=== PATIENT | male | born 1995 | race Hispanic/Latino ===

== ENCOUNTER 2018-05-26 21:13 | Emergency (ER) | payer OTHER ==
[2018-05-26] MEDS ORDERED: IBUPROFEN 200 MG TAB PO ONE (21:53)
[2018-05-26] MEDS ORDERED: NA CHLORIDE 0.9% 1,000 ML ONE (22:18)
[2018-05-26 22:52] LABS: Absolute Lymphocytes (CBC) 1.1 K/uL (0.7-4.9); Absolute Monocytes 0.6 K/uL (0.1-1.3); Absolute Neutrophil 8.1 K/uL (1.8-8.0); Basophils % 0.2 % (0-1.3); Eosinophils % 0.1 % (0-4.4); Hematocrit 47.1 % (39.6-49.0); Lymphocytes % 11.1 % (15.3-44.8); MPV 9.5 fL (7.6-11.3); Monocytes % 6.3 % (3.3-12.3); RBC Red Blood Cell Count 5.33 M/uL (4.33-5.43)
[2018-05-26] MEDS ORDERED: KETOROLAC 30 MG/ML INJ ONE (22:57)
[2018-05-26 23:00] LABS: BUN Blood Urea Nitrogen 10 mg/dL (7-18); Bicarbonate 24 mmol/L (21-32); Glucose Level 115 mg/dL (74-106); Potassium 3.2 mmol/L (3.5-5.1); Sodium Level 138 mmol/L (136-145)
[2018-05-27] MEDS ORDERED: FENTANYL CITR 100 MCG/2 ML ONE (01:58)
--- NOTE | 2018-05-27 02:42 | ER ---
Nurse's Notes [facility] Name: Stephan Domingo Age: 23 yrs Sex: Male : 1995 Arrival Date: 05/26/2018 Time: 21:23 Bed 18 Private MD: Imelda Vogt H Diagnosis: Lower abdominal pain, unspecified;Fever presenting with conditions classified elsewhere Presentation: 05/26 21:34 Presenting complaint: Patient states: he started having severe abdominal cramping since bb appox 0300 this morning vomited x 2 and has fever up to 104/105 pt took tylenol approx 30 mins ago 500 mg. Transition of care: patient was not received from another setting of care. Onset of symptoms was May 26, 2018. Risk Assessment: Do you want to hurt yourself or someone else? Patient reports no desire to harm self or others. Initial Sepsis Screen: Does the patient meet any 2 criteria? No. Patient's initial sepsis screen is negative. Does the patient have a suspected source of infection? No. Patient's initial sepsis screen is negative. Care prior to arrival: None. 21:34 Method Of Arrival: Ambulatory bb 21:34 Acuity: YEFRI 3 bb Historical: - Allergies: 21:35 No Known Allergies; bb - Home Meds: 21:35 None [Active]; bb - PMHx: 21:35 None; bb - PSHx: 21:35 None; bb - Immunization history:: Adult Immunizations up to date, Flu vaccine is not up to date. - Social history:: Smoking status: Patient/guardian denies using tobacco, Patient uses alcohol, only on a social basis. Patient/guardian denies using street drugs. - Ebola Screening: : No symptoms or risks identified at this time. Screenin:20 Abuse screen: Denies threats or abuse. Nutritional screening: No deficits noted. jb4 Tuberculosis screening: No symptoms or risk factors identified. Fall Risk None identified. Assessment: 21:50 General: Appears in no apparent distress. uncomfortable, Behavior is calm, cooperative, jb4 appropriate for age. Pain: Complains of pain in abdomen Pain radiates to back Pain currently is 7 out of 10 on a pain scale. Quality of pain is described as crampy, Pain began 1 day ago. Is continuous. Neuro: Level of Consciousness is awake, alert, obeys commands, Oriented to person, place, time, situation. Cardiovascular: Patient's skin is warm and dry. Respiratory: Airway is patent Respiratory effort is even, unlabored, Respiratory pattern is regular, symmetrical. GI: Abdomen is flat, non-distended, Bowel sounds present X 4 quads. Abd is soft X 4 quads Abdomen is tender to palpation X 4 quads. : No signs and/or symptoms were reported regarding the genitourinary system. EENT: No signs and/or symptoms were reported regarding the EENT system. Derm: Skin is intact, Skin is pink, warm \T\ dry. Musculoskeletal: Circulation, motion, and sensation intact. 23:00 Reassessment: Patient appears in no apparent distress at this time. Patient and/or jb4 family updated on plan of care and expected duration. Pain level reassessed. Patient is alert, oriented x 3, equal unlabored respirations, skin warm/dry/pink. 05/27 00:00 Reassessment: Patient appears in no apparent distress at this time. Patient and/or jb4 family updated on plan of care and expected duration. Pain level reassessed. Patient is alert, oriented x 3, equal unlabored respirations, skin warm/dry/pink. 01:00 Reassessment: Patient appears in no apparent distress at this time. Patient and/or jb4 family updated on plan of care and expected duration. Pain level reassessed. Patient is alert, oriented x 3, equal unlabored respirations, skin warm/dry/pink. 01:25 Reassessment: Pt reports an increase in pain. provider notified, see MAR for orders. jb4 02:00 Reassessment: Patient appears in no apparent distress at this time. Patient and/or jb4 family updated on plan of care and expected duration. Pain level reassessed. Patient is alert, oriented x 3, equal unlabored respirations, skin warm/dry/pink. 02:56 Reassessment: Patient appears in no apparent distress at this time. Patient and/or jb4 family updated on plan of care and expected duration. Pain level reassessed. Patient is alert, oriented x 3, equal unlabored respirations, skin warm/dry/pink. Patient states feeling better. Vital Signs: 05/26 21:35 BP 117 / 78; Pulse 129; Resp 18 S; Temp 101.1(O); Pulse Ox 96% on R/A; Weight 68.04 kg bb (R); Height 5 ft. 7 in. (170.18 cm); Pain 8/10; 23:00 BP 113 / 73; Pulse 86; Resp 16; Temp 99.1(O); Pulse Ox 99% on R/A; jb4 05/27 00:00 BP 113 / 66; Pulse 66; Resp 16; Pulse Ox 98% on R/A; jb4 01:45 BP 102 / 65; Pulse 75; Resp 16; Pulse Ox 99% on R/A; jb4 02:56 BP 114 / 65; Pulse 68; Resp 16; Pulse Ox 100% on R/A; jb4 05/26 21:35 Body Mass Index 23.49 (68.04 kg, 170.18 cm) bb ED Course: 05/26 21:23 Patient arrived in ED. es 21:23 Imelda Vogt DO is Private Physician. es 21:27 Aixa Norwood FNP-C is [facility]. snw 21:27 Ina Chiu MD is Attending Physician. snw 21:35 Triage completed. bb 21:35 Arm band placed on Patient placed in an exam room, on a stretcher, on pulse oximetry. bb flu and strep swab sent to lab. Family accompanied patient. 21:42 Axel Lainez, RN is Primary Nurse. jb4 21:50 Patient has correct armband on for positive identification. Bed in low position. Call jb4 light in reach. Side rails up X 1. Pulse ox on. NIBP on. 22:20 No provider procedures requiring assistance completed. Initial lab(s) drawn, by dc, [email or web address] sent to lab. Inserted saline lock: 20 gauge in right antecubital area, using aseptic technique. Blood collected. 05/27 00:[address] via wheelchair. kw1 00:42 CT completed. Patient tolerated procedure well. Patient moved back from CT. kw1 01:00 CT Abd/Pelvis - W/Contrast In Process Unspecified. EDMS 02:55 IV discontinued, intact, bleeding controlled. jb4 Administered Medications: 05/26 21:40 Drug: Motrin 400 mg Route: PO; bb 22:50 Follow up: Response: No adverse reaction; Temperature is decreased jb4 22:20 Drug: NS 0.9% 1000 ml Route: IV; Rate: 1 bolus; Site: right antecubital; jb4 23:30 Follow up: Response: No adverse reaction; IV Status: Completed infusion jb4 22:45 CANCELLED (Duplicate Order): Motrin 400 mg PO once snw 22:50 Drug: TORadol 30 mg Route: IVP; Site: right antecubital; jb4 23:20 Follow up: Response: No adverse reaction; Pain is decreased 4 05/27 01:55 Drug: fentaNYL (PF) 25 mcg Route: IVP; Site: right antecubital; jb4 02:53 Follow up: Response: No adverse reaction; Pain is decreased [facility] Outcome: 02:41 Discharge ordered by MD. sn 02:55 Discharged to home ambulatory, with family. 4 02:55 Condition: stable 02:55 Discharge instructions given to patient, family, Instructed on discharge instructions, follow up and referral plans. medication usage, Demonstrated understanding of instructions, follow-up care, medications, Prescriptions given X 3. 03:00 Patient left the ED. [facility] Signatures: Dispatcher [employer] EDMS Aixa Norwood, [employer]-C [employer]-Csnw Kayli Larios Brenda, RN RN Axel Bolanos RN RN jb Caprice Concepcion kw1 Corrections: (The following items were deleted from the chart) 00:25 0218 23:00 BP 113 / 73; Pulse 86bpm; Resp 16bpm; Pulse Ox 99% RA; [place] [id number] 05/27 02:58 02:56 Abuse screen: Denies threats or abuse. [place] [id number]
--- NOTE | 2018-05-27 02:42 | EDPHYS ---
Physician Documentation [facility] Name: Stephan Domingo Age: 23 yrs Sex: Male : 1995 Arrival Date: 05/26/2018 Time: 21:23 Bed 18 Private MD: Imelda Vogt H ED Physician Ina Chiu HPI: 05/26 22:19 This 23 yrs old Male presents to ER via Ambulatory with complaints of Fever. snw 22:19 The patient reports fever, that was measured at 103 degrees Fahrenheit. Onset: The snw symptoms/episode began/occurred suddenly, this morning. Associated signs and symptoms: Pertinent positives: abdominal pain, decreased appetite, myalgias, nausea, vomiting. Severity of symptoms: At their worst the symptoms were moderate severe. The patient has not experienced similar symptoms in the past. The patient has not recently seen a physician. Historical: - Allergies: 21:35 No Known Allergies; bb - Home Meds: 21:35 None [Active]; bb - PMHx: 21:35 None; bb - PSHx: 21:35 None; bb - Immunization history:: Adult Immunizations up to date, Flu vaccine is not up to date. - Social history:: Smoking status: Patient/guardian denies using tobacco, Patient uses alcohol, only on a social basis. Patient/guardian denies using street drugs. - Ebola Screening: : No symptoms or risks identified at this time. ROS: 22:18 Constitutional: Negative for chills and weight loss, + fever Eyes: Negative for injury, snw pain, redness, and discharge, ENT: Negative for injury, pain, and discharge, Neck: Negative for injury, pain, and swelling, Cardiovascular: Negative for chest pain, palpitations, and edema, Respiratory: Negative for shortness of breath, cough, wheezing, and pleuritic chest pain, Back: Negative for injury and pain, : Negative for injury, bleeding, discharge, and swelling, MS/Extremity: Negative for injury and deformity, Skin: Negative for injury, rash, and discoloration, Neuro: Negative for headache, weakness, numbness, tingling, and seizure. 22:18 Abdomen/GI: Positive for abdominal pain, nausea and vomiting. Exam: 22:17 Head/Face: Normocephalic, atraumatic. Eyes: Pupils equal round and reactive to light, snw extra-ocular motions intact. Lids and lashes normal. Conjunctiva and sclera are non-icteric and not injected. Cornea within normal limits. Periorbital areas with no swelling, redness, or edema. ENT: Nares patent. No nasal discharge, no septal abnormalities noted. Tympanic membranes are normal and external auditory canals are clear. Oropharynx with no redness, swelling, or masses, exudates, or evidence of obstruction, uvula midline. Mucous membranes moist. Neck: Trachea midline, no thyromegaly or masses palpated, and no cervical lymphadenopathy. Supple, full range of motion without nuchal rigidity, or vertebral point tenderness. No Meningismus. Chest/axilla: Normal chest wall appearance and motion. Nontender with no deformity. No lesions are appreciated. 22:17 Back: No spinal tenderness. No costovertebral tenderness. Full range of motion. Skin: Warm, dry with normal turgor. Normal color with no rashes, no lesions, and no evidence of cellulitis. MS/ Extremity: Pulses equal, no cyanosis. Neurovascular intact. Full, normal range of motion. Neuro: Awake and alert, GCS 15, oriented to person, place, time, and situation. Cranial nerves II-XII grossly intact. Motor strength 5/5 in all extremities. Sensory grossly intact. Cerebellar exam normal. Normal gait. 22:17 Constitutional: The patient appears alert, awake, anxious. 22:17 Cardiovascular: Rate: tachycardic, Heart sounds: normal. 22:17 Respiratory: Exam negative for 22:17 Abdomen/GI: Inspection: distension, Bowel sounds: hyperactive, Palpation: moderate abdominal tenderness, in the suprapubic area, right lower quadrant and left lower quadrant. Vital Signs: 21:35 BP 117 / 78; Pulse 129; Resp 18 S; Temp 101.1(O); Pulse Ox 96% on R/A; Weight 68.04 kg bb (R); Height 5 ft. 7 in. (170.18 cm); Pain 8/10; 23:00 BP 113 / 73; Pulse 86; Resp 16; Temp 99.1(O); Pulse Ox 99% on R/A; jb4 05/27 00:00 BP 113 / 66; Pulse 66; Resp 16; Pulse Ox 98% on R/A; jb4 01:45 BP 102 / 65; Pulse 75; Resp 16; Pulse Ox 99% on R/A; jb4 02:56 BP 114 / 65; Pulse 68; Resp 16; Pulse Ox 100% on R/A; jb4 05/26 21:35 Body Mass Index 23.49 (68.04 kg, 170.18 cm) bb MDM: 05/26 21:59 Patient medically screened. snw 23:35 Data reviewed: vital signs, nurses notes. Data interpreted: Pulse oximetry: on room air snw is 96 %. Interpretation: acceptable. Counseling: I had a detailed discussion with the patient and/or guardian regarding: the historical points, exam findings, and any diagnostic results supporting the discharge/admit diagnosis, lab results, need for CT. Response to treatment: the patient's symptoms have markedly improved after treatment, post toradol. 05/27 00:32 ED course: to CT via W/C. snw 05/26 21:40 Order name: Flu; Complete Time: 22:17 bb 05/26 21:40 Order name: Strep; Complete Time: 22:03 bb 05/26 21:56 Order name: CBC with Diff; Complete Time: 23:03 snw 05/26 21:56 Order name: Chem 7; Complete Time: 23:03 snw 05/26 22:02 Order name: Throat Culture EDMS 05/26 23:04 Order name: CT Abd/Pelvis - W/Contrast snw Administered Medications: 05/26 21:40 Drug: Motrin 400 mg Route: PO; bb 22:50 Follow up: Response: No adverse reaction; Temperature is decreased jb4 22:20 Drug: NS 0.9% 1000 ml Route: IV; Rate: 1 bolus; Site: right antecubital; jb4 23:30 Follow up: Response: No adverse reaction; IV Status: Completed infusion jb4 22:45 CANCELLED (Duplicate Order): Motrin 400 mg PO once snw 22:50 Drug: TORadol 30 mg Route: IVP; Site: right antecubital; jb4 23:20 Follow up: Response: No adverse reaction; Pain is decreased jb4 05/27 01:55 Drug: fentaNYL (PF) 25 mcg Route: IVP; Site: right antecubital; jb4 02:53 Follow up: Response: No adverse reaction; Pain is decreased jb4 Disposition: 03:20 Co-signature as Attending Physician, Ina Chiu MD. ma2 Disposition: 05/27/18 02:41 Discharged to Home. Impression: Lower abdominal pain, unspecified, Fever presenting with conditions classified elsewhere. - Condition is Stable. - Discharge Instructions: Abdominal Pain, Adult, Fever, Adult. - Prescriptions for Bentyl 20 mg Oral Tablet - take 1 tablet by ORAL route every 6 hours As needed; 20 tablet. Zofran 4 mg Oral Tablet - take 1 tablet by ORAL route every 12 hours As needed; 20 tablet. Diclofenac Sodium 75 mg Oral Tablet Sustained Release - take 1 tablet by ORAL route 2 times per day; 30 tablet. - Work release form, Medication Reconciliation Form, Thank You Letter, Antibiotic Education, Prescription Opioid Use form. - Follow up: Private Physician; When: 2 - 3 days; Reason: Recheck today's complaints, Continuance of care, Re-evaluation by your physician. Follow up: Emergency Department; When: As needed; Reason: Worsening of condition. Signatures: Dispatcher [employer] EDGA iAxa Norwood, JAZMIN-C RESEARCH MANAGER-Csnw Shanel Escobar, RN RN Axel Bolanos RN RN jb4 Ina Chiu MD MD ma2 Corrections: (The following items were deleted from the chart) 05/26 22:45 22:40 Motrin 400 mg PO once ordered. snw snw 05/27 03:00 02:41 05/27/2018 02:41 Discharged to Home. Impression: Lower abdominal pain, jb4 unspecified; Fever presenting with conditions classified elsewhere. Condition is Stable. Forms are Medication Reconciliation Form, Thank You Letter, Antibiotic Education, Prescription Opioid Use. Follow up: Private Physician; When: 2 - 3 days; Reason: Recheck today's complaints, Continuance of care, Re-evaluation by your physician. Follow up: Emergency Department; When: As needed; Reason: Worsening of condition. snw
--- NOTE | 2018-05-27 16:49 | RAD REPORT ---
EXAM DESCRIPTION: CT Abdomen and Pelvis With Intravenous Contrast CLINICAL HISTORY: The patient is 23 years old and is Male; ABD PAIN COMPARISON: None. TECHNIQUE: Axial computed tomography images of the abdomen and pelvis with intravenous contrast. Sagittal and co celso reformatted images were created and reviewed. This CT exam was performed using one or more of t he following dose reduction techniques: Automated exposure control, adjustment of the mA and/or kV ac cording to patient size, and/or use of iterative reconstruction technique. FINDINGS: LUNG BASES: Lung bases are clear. ABDOMEN: LIVER: Unremarkable. No mass. GALLBLADDER AND BILE DUCTS: Unremarkable. No calcified stones. No ductal dilation. PANCREAS: Unremarkable. No mass. SPLEEN: Unremarkable. No splenomegaly. ADRENALS: Unremarkable. No mass. KIDNEYS AND URETERS: Symmetric renal contrast secretion is seen. No hydronephrosis or hydroureter. STOMACH AND BOWEL: Enteric contrast is seen throughout the small and proximal large bowel. No obstruc tion. No mucosal thickening. PELVIS: APPENDIX: The appendix is seen and is within normal limits. BLADDER: Unremarkable. No mass. REPRODUCTIVE: Unremarkable as visualized. ABDOMEN and PELVIS: INTRAPERITONEAL SPACE: Unremarkable. No free air. No significant fluid collection. BONE/JOINTS: No acute fracture. No dislocation. SOFT TISSUES: Unremarkable. VASCULATURE: Unremarkable. No abdominal aortic aneurysm. LYMPH NODES: Unremarkable. No enlarged lymph nodes. IMPRESSION: No acute abdominal or pelvic abnormality. Electronically signed by Cong Guzman DO 05/27/2018 1:40 AM MULTIM[employer] PROGRAMMER Due to temporary technical issues with the PACS/Fluency reporting system, reports are being signed by the in house radiologist as a courtesy to ensure prompt reporting. The interpreting radiologist is f bogdanly responsible for the content of the report.
== END 2018-05-27 03:00 | disposition home or self-care (01) ==
LOC: ER 21:13
DX: R10.30 Lower abdominal pain, unspecified (principal)
CPT/HCPCS: 36415; 74177; 80048; 85025; 87070; 87081; 87804; J3010; J7030; Q9967